=== PATIENT | male | born 2005 | race Caucasian/White ===

== ENCOUNTER 2024-08-08 08:30 | Emergency (ER) | payer OTHER, MEDICARE, SELFPAY ==
[2024-08-08 08:32] VITALS: BP 133/100
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
[2024-08-08] MEDS: MOTRIN 600 MG PO (09:53)
[2024-08-08] MEDS: ADACEL 0.5 ML IM (10:15)
[2024-08-08 10:18] VITALS: BP 109/86
== END 2024-08-08 10:31 | disposition home or self-care (01) ==
LOC: EMR 08:30
PROVIDERS: EMERGENCY PHYSICIAN Emergency Medicine
DX: S09.90XA Unspecified injury of head, initial encounter (principal); S80.811A Abrasion, right lower leg, initial encounter; R22.41 Localized swelling, mass and lump, right lower limb; V86.95XA Unspecified occupant of 3- or 4- wheeled all-terrain vehicle (ATV) injured in nontraffic accident, initial encounter; Z23 Encounter for immunization
CPT/HCPCS: 99284; 90471; 70450; 73590; 73610; 73630; 90715